=== PATIENT | female | born 1965 | race African-American/Black ===

== ENCOUNTER 2021-09-14 00:09 | Emergency (ER) | payer OTHER ==
[~2021-09-14] VITALS: Ht 157.5 cm; Wt 61.4 kg
[2021-09-14 00:45] VITALS: BP 109/77
[2021-09-14] MEDS ORDERED: HYDROCODONE/ACETAMINOPHEN 5-325 MG TABLET PO ONE ×2 (01:45→04:15)
== END 2021-09-14 06:37 | disposition home or self-care (01) ==
LOC: EMS 00:10
DX: S62.231A Other displaced fracture of base of first metacarpal bone, right hand, initial encounter for closed fracture (principal); S62.310A Displaced fracture of base of second metacarpal bone, right hand, initial encounter for closed fracture; S62.312A Displaced fracture of base of third metacarpal bone, right hand, initial encounter for closed fracture; S62.314A Displaced fracture of base of fourth metacarpal bone, right hand, initial encounter for closed fracture; V18.4XXA Pedal cycle driver injured in noncollision transport accident in traffic accident, initial encounter; Y93.89 Activity, other specified; Y92.89 Other specified places as the place of occurrence of the external cause; Y99.8 Other external cause status
CPT/HCPCS: 99284; 73080-TC; 73110-TC; Z7502; Z7610